=== PATIENT | female | born 1990 | race Caucasian/White ===

== ENCOUNTER → 2022-06-07 | Outpatient (CLI) | payer OTHER ==
[~2022-06-07] MED LIST: ISOVUE-300 61% 100ML VIAL As Ordered ONE; LIDOCAINE 1% MDV 20ML VIAL As Ordered ONE; PROHANCE 279.3MG/ML 5ML VIAL As Ordered ONE
== END ==
LOC: M RAD 06:29
PROVIDERS: ATTEND Physician Assistant
DX: S73.191A Other sprain of right hip, initial encounter (principal); X58.XXXA Exposure to other specified factors, initial encounter; Y92.9 Unspecified place or not applicable
CPT/HCPCS: 27093; 73723; 77002; A9576

== ENCOUNTER → 2022-09-08 | Outpatient (CLI) | payer OTHER | LOC: M PLAIMG 15:58 | PROVIDERS: ATTEND Physician Assistant Surgical | DX: M24.151 Other articular cartilage disorders, right hip (principal); S73.121A Ischiocapsular ligament sprain of right hip, initial encounter ==